=== PATIENT | male | born 1945 | race Caucasian/White ===

== ENCOUNTER 2021-10-05 15:00 | Inpatient (IN) | payer OTHER ==
[~2021-10-05] VITALS: Ht 182.9 cm; Wt 84.0 kg
[2021-10-05 11:30] LABS: HEMATOCRIT 33.4 % (42-54); MEAN CORPUSCULAR HEMOGLOBIN 29.9 pg (27.0-33.0); MEAN CORPUSCULAR HGB CONC 33.5 g/dL (32.0-36.0); MEAN CORPUSCULAR VOLUME 89.3 fL (79-99); RED BLOOD CELL COUNT(AUTO) 3.74 MIL/uL (4.50-6.20); RED CELL DISTRIBUTION WIDTH 14.1 % (11.0-15.5); WHITE BLOOD COUNT (AUTO) 7.9 K/uL (4.8-10.8)
[2021-10-05 11:41] LABS: INR 0.94 (0.85-1.15); PROTHROMBIN TIME 10.3 SEC (9.6-11.6)
[2021-10-05 11:42] LABS: PARTIAL THROMBOPLASTIN TIME 26.3 SEC (26.3-35.5)
[2021-10-05 12:09] LABS: CREATININE 1.1 mg/dL (0.5-1.5); POTASSIUM 4.6 mmol/L (3.5-5.1)
[2021-10-06 10:20] VITALS: BP 170/70
[2021-10-06] MEDS ORDERED: TIOT4MIS3 IH (11:13)
[2021-10-06] MEDS ORDERED: ASPI-1026 PO (11:13)
[2021-10-06] MEDS ORDERED: MV-M1TAB20 PO (11:13)
[2021-10-06] MEDS ORDERED: CLOP75TA14 PO (11:13)
[2021-10-06] MEDS ORDERED: AMLO-257 PO (11:13)
[2021-10-06] MEDS ORDERED: ALEN70TA80 PO (12:54)
[2021-10-06] MEDS ORDERED: ICOS1CAP PO (12:54)
[2021-10-06] MEDS ORDERED: ATOR40TA69 PO (12:54)
[2021-10-06] MEDS ORDERED: LISI20TA24 PO (12:54)
[2021-10-06] MEDS ORDERED: TERA1CAP4 PO (12:54)
[2021-10-06] MEDS ORDERED: METF-444 PO (12:54)
[2021-10-07] VITALS (18 sets, daily range): BP systolic 128–173; BP diastolic 48–82
[2021-10-07] MEDS ORDERED: 0.9%NACL 1000ML 1,000 ML IV ONE (10:47)
[2021-10-07] MEDS: CEFAZOLIN SODIUM 1 GM VIAL ONE ×2 (11:09→14:17)
[2021-10-07] MEDS ORDERED: CEFAZOLIN SODIUM 1 GM VIAL ONE (12:51)
[2021-10-07] MEDS ORDERED: FAMOTIDINE 20MG VIAL IV ONE (12:56)
[2021-10-07] MEDS ORDERED: SUGAMMADEX SODIUM 200 MG/2 ML VIAL IV ONE (12:57)
[2021-10-07] MEDS ORDERED: PROPOFOL 10 MG/ML 20ML VIAL IV ONE (13:09)
[2021-10-07] MEDS ORDERED: FENTANYL CITRATE PF 50 MCG/1 ML 2ML VIAL ONE (13:09)
[2021-10-07] MEDS ORDERED: ROCURONIUM 10MG/1ML SYR 10 MG/ML ML ONE (13:09)
[2021-10-07] MEDS ORDERED: ATROPINE 0.4MG VIAL IJ ONE (13:09)
[2021-10-07] MEDS ORDERED: ONDANSETRON 4MG INJ ONE (14:36)
[2021-10-07] MEDS ORDERED: MEPERIDINE-PF 25 MG/ML SYG ONE (15:43)
[2021-10-07] MEDS ORDERED: ACETAMINOPHEN 325 MG TAB PO PRN (16:00)
[2021-10-07] MEDS ORDERED: TRAMADOL HCL 50 MG TABLET PO PRN ×2 (16:00)
[2021-10-07] MEDS ORDERED: ONDANSETRON 4MG INJ IVP PRN (16:00)
[2021-10-07] MEDS: METFORMIN HCL 500 MG TABLET PO SCH (16:57)
[2021-10-07] MEDS: KETOROLAC 15MG/ML VIAL (15MG/ML) IV SCH (17:57)
[2021-10-07] MEDS: **HM**(Icosapent Ethyl (Vascepa) 2 GM PO SCH (20:04)
[2021-10-07] MEDS: TERAZOSIN HCL 1 MG PO SCH (20:04)
[2021-10-07] MEDS: CEFAZOLIN SODIUM 1 GM VIAL IVP SCH (23:06)
[2021-10-07] MEDS: FAMOTIDINE 20MG TAB PO SCH (23:06)
[2021-10-08] MEDS: KETOROLAC 15MG/ML VIAL (15MG/ML) IV SCH ×5 (01:31→23:35)
[2021-10-08 03:21] VITALS: BP 99/50
[2021-10-08 04:15] LABS: HEMATOCRIT 29.3 % (42-54); MEAN CORPUSCULAR HEMOGLOBIN 30.2 pg (27.0-33.0); MEAN CORPUSCULAR HGB CONC 33.4 g/dL (32.0-36.0); MEAN CORPUSCULAR VOLUME 90.4 fL (79-99); RED BLOOD CELL COUNT(AUTO) 3.24 MIL/uL (4.50-6.20); RED CELL DISTRIBUTION WIDTH 14.1 % (11.0-15.5); WHITE BLOOD COUNT (AUTO) 8.4 K/uL (4.8-10.8)
[2021-10-08 04:28] LABS: CREATININE 1.1 mg/dL (0.5-1.5); POTASSIUM 4.4 mmol/L (3.5-5.1)
[2021-10-08 07:07] VITALS: BP 128/58
[2021-10-08] MEDS: CEFAZOLIN SODIUM 1 GM VIAL IVP SCH ×2 (07:24→14:25)
[2021-10-08] MEDS: METFORMIN HCL 500 MG TABLET PO SCH ×2 (08:46→17:51)
[2021-10-08] MEDS: FUROSEMIDE 20 MG TABLET PO SCH (08:46)
[2021-10-08] MEDS: LISINOPRIL 20 MG TABLET PO SCH (08:46)
[2021-10-08] MEDS: ATORVASTATIN 40 MG TABLET PO SCH (08:47)
[2021-10-08] MEDS: FAMOTIDINE 20MG TAB PO SCH ×2 (08:47→21:21)
[2021-10-08] MEDS: ASPIRIN 325MG TAB PO SCH (08:47)
[2021-10-08] MEDS: CLOPIDOGREL 75MG TAB PO SCH (08:47)
[2021-10-08] MEDS: AMLODIPINE 5 MG TAB PO SCH (08:47)
[2021-10-08] MEDS: OLODATEROL HCL IH SCH (08:50)
[2021-10-08] MEDS: TIOTROPIUM BR IH SCH (08:50)
[2021-10-08] MEDS: **HM**(Icosapent Ethyl (Vascepa) 2 GM PO SCH ×2 (08:51→21:00)
[2021-10-08 20:26] VITALS: BP 109/49
[2021-10-08] MEDS: TERAZOSIN HCL 1 MG PO SCH (21:00)
[2021-10-09 00:10] VITALS: BP 128/54
[2021-10-09 03:53] VITALS: BP 120/54
[2021-10-09] MEDS: KETOROLAC 15MG/ML VIAL (15MG/ML) IV SCH ×3 (05:05→18:00)
[2021-10-09] MEDS: AMLODIPINE 5 MG TAB PO SCH (09:00)
[2021-10-09] MEDS: **HM**(Icosapent Ethyl (Vascepa) 2 GM PO SCH (09:00)
[2021-10-09] MEDS: FUROSEMIDE 20 MG TABLET PO SCH (09:00)
[2021-10-09] MEDS: OLODATEROL HCL IH SCH (09:00)
[2021-10-09] MEDS: TIOTROPIUM BR IH SCH (09:00)
[2021-10-09] MEDS: LISINOPRIL 20 MG TABLET PO SCH (09:00)
[2021-10-09] MEDS: METFORMIN HCL 500 MG TABLET PO SCH ×2 (09:13→17:55)
[2021-10-09] MEDS: ATORVASTATIN 40 MG TABLET PO SCH (09:13)
[2021-10-09] MEDS: CLOPIDOGREL 75MG TAB PO SCH (09:13)
[2021-10-09 09:15] VITALS: BP 100/42
[2021-10-09] MEDS: ASPIRIN 325MG TAB PO SCH (09:15)
[2021-10-09] MEDS: FAMOTIDINE 20MG TAB PO SCH (09:16)
[2021-10-09 12:35] VITALS: BP 83/33
[2021-10-09 12:38] VITALS: BP 110/49
[2021-10-09] MEDS ORDERED: MIDODRINE HCL 5 MG TABLET PO PRN (14:00)
[2021-10-09 16:54] VITALS: BP 128/54
[2021-10-14] MEDS ORDERED: IRON PO SCH (09:00)
[2021-10-14] MEDS ORDERED: MV MN PO SCH (09:00)
[2021-10-14] MEDS ORDERED: HERBAL CMPLX PO SCH (09:00)
[2021-10-14] MEDS ORDERED: [UNRECOGNIZED DRUG - OTHER] PO SCH (09:00)
== END 2021-10-09 19:44 | disposition home or self-care (01) | DRG 254 ==
LOC: DAHIP 10-07 10:47 → 2DH 10-07 17:12
PROVIDERS: ADMIT Thoracic Surgery (Cardiothoracic Vascular Surgery); ATTEND Thoracic Surgery (Cardiothoracic Vascular Surgery)
PROC: 041K0ZH Bypass Right Femoral Artery to Right Femoral Artery, Open Approach (ICD-10-PCS; principal; 2021-10-07 13:53)
DX: I73.9 Peripheral vascular disease, unspecified (principal); E78.00 Pure hypercholesterolemia, unspecified; Z20.822 Contact with and (suspected) exposure to COVID-19; E87.70 Fluid overload, unspecified; Z79.02 Long term (current) use of antithrombotics/antiplatelets; Z79.82 Long term (current) use of aspirin; Z79.899 Other long term (current) drug therapy
CPT/HCPCS: 36415; 71045; 80048; 82948; 85027; 85610; 85730; 86850; 86900; 86901; 87426; 93005; 97039; C1757; G0378; J0461; J0690; J1644; J1885; J2175; J2405; J2704; J3010; J3490; J7030; J7040